=== PATIENT | female | born 1975 | race Caucasian/White ===

== ENCOUNTER 2021-11-10 10:30 | Observation (INO) ==
[2021-11-10] MEDS ORDERED: 0.9 % Sodium Chloride 500 ML IVC ONE (11:00)
[2021-11-10] MEDS ORDERED: Iopamidol - 370 500 ML MLS IVP ONE (11:00)
[2021-11-10 11:46] LABS: Basophils # 0.1 K/mcL (0.0-0.2); Basophils % 0.8 %; Eosinophils # 0.1 K/mcL (0.0-0.6); Eosinophils % 2.1 %; Hematocrit 43.7 % (35.3-44.9); Hemoglobin 14.8 g/dL (11.5-15.4); Immature Granulocytes % 0.2 % (0-4); Lymphocytes # 1.6 K/mcL (0.6-4.6); Lymphocytes % 26.1 %; Mean Corpuscular HGB Conc 33.9 g/dL (31.6-35.5); Mean Corpuscular Volume 91.4 fL (83.0-100.0); Mean Platelet Volume 11.6 fL (9.4-12.4); Monocytes # 0.4 K/mcL (0.0-1.3); Monocytes % 6.4 %; Neutrophils # 3.9 K/mcL (1.6-8.9); Platelet Count 314 K/mcL (140-400); Red Blood Count 4.78 M/mcL (3.82-4.97); Red Cell Distribution Width 12.6 % (11.5-14.5); Segmented Neutrophils % 64.4 %; White Blood Count 6.1 K/mcL (4.3-11.1)
[2021-11-10 11:53] LABS: INR 1.1; Prothrombin Time 11.7 Seconds (9.4-12.1)
[2021-11-10 11:55] LABS: Activated Partial Thrombo Time 30.3 Seconds (26.0-36.0)
[2021-11-10 12:32] LABS: Alanine Aminotransferase 14 Units/L (7-52); Albumin 4.5 g/dL (3.5-5.7); Albumin/Globulin Ratio 1.4 (1.1-2.2); Alkaline Phosphatase 68 Units/L (34-104); Aspartate Amino Transferase 19 Units/L (13-39); BUN/Creatinine Ratio 10 (6-26); Bilirubin,Indirect 0.5 mg/dL (0.0-1.0); Bilirubin,Total 0.5 mg/dL (0.3-1.0); Blood Urea Nitrogen 10 mg/dL (6-20); Calcium 9.6 mg/dL (8.6-10.3); Carbon Dioxide 25 mEq/L (23-29); Chloride 105 mEq/L (98-107); Globulin 3.3 g/dL (2.4-3.5); Glucose 94 mg/dL (70-105); Lipase 24 Units/L (11-82); Magnesium 1.9 mg/dL (1.6-2.6); Osmolality,Calculated 285 (280-300); Potassium 3.5 mEq/L (3.5-5.1); Sodium 138 mEq/L (136-145); Total Protein 7.8 g/dL (6.4-8.9)
[2021-11-10 14:08] LABS: Troponin I < 0.03 ng/mL (< 0.04)
[2021-11-10 14:14] LABS: Thyroid Stimulating Hormone 1.292 mcIU/mL (0.340-5.600)
[2021-11-10] MEDS ORDERED: Aspirin 81 MG TAB.CHEW PO ONE (14:21)
[2021-11-10] MEDS: Nitroglycerin 0.4 MG TAB.SUBL SL PRN ×2 (15:02→15:08)
[2021-11-10] MEDS ORDERED: Acetaminophen 325 MG TABLET PO PRN (15:25)
[2021-11-10] MEDS ORDERED: Naloxone 0.4 MG/ML INJ IVP PRN (15:25)
[2021-11-10] MEDS: Metoprolol XL (24 HR) Succ 25 MG TAB.ER.24H PO SCH (17:48)
[2021-11-11 02:43] LABS: Chol/HDL Ratio 2.9 (0-4.9); Cholesterol 182 mg/dL (< 200); HDL Cholesterol 63 mg/dL (40-59); LDL Cholesterol,Calculated 106 mg/dL (< 100); Triglycerides 66 mg/dL (< 150); Troponin I < 0.03 ng/mL (< 0.04)
[2021-11-11] MEDS ORDERED: *HR* Enoxaparin 40 MG/0.4 ML SYRINGE SQ SCH (06:00)
[2021-11-11] MEDS ORDERED: Regadenoson 0.4 MG/5 ML SYRINGE IVP ONE (06:12)
[2021-11-11 06:54] VITALS: TEMP 97.9
[2021-11-11] MEDS ORDERED: Aspirin Enteric Coated 81 MG Tablet PO SCH (09:00)
[2021-11-11] MEDS: Metoprolol XL (24 HR) Succ 25 MG TAB.ER.24H PO SCH (09:42)
[2021-11-11 12:02] VITALS: BP 113/76; PULSE 62; O2SAT 97
[2021-11-11 12:44] LABS: Estimated Average Glucose 103 mg/dl; Hemoglobin A1C 5.2 %
== END 2021-11-11 11:40 | disposition home or self-care (01) ==
LOC: EMEROOARM 10:30 → 3BNU 10:30 → SUATTDRO 15:37 → 3BNU 16:30
PROVIDERS: ADMIT Internal Medicine; ATTEND Internal Medicine